=== PATIENT | male | born 1935 | race Caucasian/White ===

== ENCOUNTER 2016-09-18 11:48 | Day surgery (SDC) | payer MEDICARE, BC ==
--- NOTE | ~2016-09-18 | EGD ---
EGD REPORT [facility] [address] [place] [address] NAME: GAVIOTA RADER : 37 STATUS : REG [facility]#: [id number] AGE: 81 ADM/REG DATE : 09/18/16 MR#: [id number] REPORT SERV DATE: 09/18/16 DICTATED BY: BEN TIMMONS DATE: 09/18/16 REPORT STATUS : Draft TRANSCRIBED BY: [facility] DATE: 09/18/16 End[facility] Center Patient Name: Gaviota Rader Date of : 1935 Attending MD: BEN TIMMONS MD Procedure Date No Time: 09/18/2016 Procedure: Colonoscopy Indications: High risk colon cancer surveillance: Personal history of colonic polyps, Last colonoscopy: February 2014 Referring MD: HAKEEM MORENO Medicines: See the Anesthesia note for documentation of the administered medications Complications: No immediate complications. Procedure: Pre-Anesthesia Assessment: - ASA Grade Assessment: III - A patient with severe systemic disease. After I obtained informed consent, the scope was passed under direct vision. Throughout the procedure, the patient's blood pressure, pulse, and oxygen saturations were monitored continuously. The CF [id number] was introduced through the anus and advanced to the cecum, identified by appendiceal orifice and ileocecal valve. The colonoscopy was performed without difficulty. The patient tolerated the procedure well. The quality of the bowel preparation was adequate. Findings: The perianal and digital rectal examinations were normal. Diverticula were found in the entire colon. Internal hemorrhoids were found during retroflexion and were large. A sessile polyp was found in the descending colon. The polyp was small in size. The polyp was removed with a cold biopsy forceps. Resection and retrieval were complete. A sessile polyp was found in the sigmoid colon. The polyp was small in size. The polyp was removed with a cold biopsy forceps. Resection and retrieval were complete. Impression: - Diverticulosis in the entire examined colon. - Internal hemorrhoids. - One small polyp in the descending colon. Resected and retrieved. - One small polyp in the sigmoid colon. Resected and retrieved. Recommendation: - Patient has a contact number available for EGD REPORT [address] [address] NAME: GAVIOTA RADER : 37 STATUS : REG [facility] PAT#: [id number] AGE: 81 ADM/REG DATE : 09/18/16 MR#: [id number] REPORT SERV DATE: 09/18/16 DICTATED BY: BEN TIMMONS DATE: 09/18/16 REPORT STATUS : Draft TRANSCRIBED BY: [employer] DATE: 09/18/16 emergencies. The signs and symptoms of potential delayed complications were discussed with the patient. Return to normal activities tomorrow. Written discharge instructions were provided to the patient. - Regular diet. - Continue present medications. - Repeat colonoscopy is not recommended for surveillance. - FOR YOUR BIOPSY RESULTS: Please go to [email or web address] and register to receive your results via the portal. Your biopsy results will be posted there in about 7 to 10 days. IF you do not see result in 10 days, call office. Procedure Code(s): --- Professional --- 03402, Colonoscopy, flexible, proximal to splenic flexure; with biopsy, single or multiple Diagnosis Code(s): --- Professional --- K64.8, Other hemorrhoids K57.30, Diverticulosis of large intestine without perforation or abscess without bleeding D12.5, Benign neoplasm of sigmoid colon D12.4, Benign neoplasm of descending colon Z86.010, Personal history of colonic polyps CPT copyright 2013 [employer]. All rights reserved. The codes documented in this report are preliminary and upon professor in family studies review may be revised to meet current compliance requirements. Ben Timmons MD BEN TIMMONS MD 09/18/2016 1:38 PM This report has been signed electronically. Number of Addenda: 0 Note Initiated On: 09/18/2016 1:16 PM Scope Withdrawal Time 0 hours 7 minutes 38 seconds [address] [place] [address]
[~2016-09-18 11:48] MED LIST: APRES25 PO; ASAB PO; BENEMID500 PO; COLCH6 PO; COMBIGAN0.2 MG/0.5 OPH; DIABET1.25 PO; EZFE 200200 MG PO; GLUCXL2.5 PO; HYT2 PO; L40 PO; LEVOTHROID25 MCG PO; LOP100 PO; NORV10 PO; PROTONIX PO; RX EYE DROPS OPH; SYN.025B PO; THERGRANM PO; Z100 PO; ZOCOR20 PO; [UNRECOGNIZED DRUG - OTHER] PO
== END 2016-09-18 23:59 | disposition home or self-care (01) ==
LOC: DMU 11:48
PROVIDERS: Internal Medicine Gastroenterology
PROC: 0DBM8ZX Excision of Descending Colon, Via Natural or Artificial Opening Endoscopic, Diagnostic (ICD-10-PCS; 2016-09-18)
PROC: 0DBN8ZX Excision of Sigmoid Colon, Via Natural or Artificial Opening Endoscopic, Diagnostic (ICD-10-PCS; principal; 2016-09-18 13:30)
DX: D12.4 Benign neoplasm of descending colon (principal); K63.5 Polyp of colon; K64.8 Other hemorrhoids; K57.30 Diverticulosis of large intestine without perforation or abscess without bleeding; I12.9 Hypertensive chronic kidney disease with stage 1 through stage 4 chronic kidney disease, or unspecified chronic kidney disease; N18.9 Chronic kidney disease, unspecified; E11.9 Type 2 diabetes mellitus without complications; E78.00 Pure hypercholesterolemia, unspecified; M19.90 Unspecified osteoarthritis, unspecified site; M10.9 Gout, unspecified; K21.9 Gastro-esophageal reflux disease without esophagitis; E03.9 Hypothyroidism, unspecified; D64.9 Anemia, unspecified; Z90.89 Acquired absence of other organs; Z86.010 Personal history of colon polyps; Z95.0 Presence of cardiac pacemaker; Z88.6 Allergy status to analgesic agent; Z98.41 Cataract extraction status, right eye; Z98.42 Cataract extraction status, left eye; Z98.890 Other specified postprocedural states
CPT/HCPCS: 82962; 88305